=== PATIENT | male | born 1935 | race Caucasian/White ===

== ENCOUNTER 2018-04-11 10:57 | Day surgery (SDC) | payer MEDICARE, BC ==
[~2018-04-11 10:57] MED LIST: ACTO35TA PO; AMBI6.25 PO; CYMB30CA PO; HYDR12.56 PO; NEXI40CA PO; PRED10 PO; PREG75 PO; PROS5TAB2 PO; TAMS0.4C67 PO
[2018-04-11] MEDS ORDERED: IOHEXOL 350 MG/ML 100 ML BTL (for Cath Lab) OTHER ONE (10:58)
[2018-04-11] MEDS ORDERED: ECASA81 PO (11:45)
[2018-04-11] MEDS ORDERED: MELO7.5T27 PO (11:45)
[2018-04-11] MEDS ORDERED: TRAM50TA PO (11:45)
[2018-04-11] MEDS ORDERED: TAMS0.4C4 (11:45)
[2018-04-11] MEDS ORDERED: PAXI10TA8 PO (11:45)
[2018-04-11] MEDS ORDERED: NEXI40CA PO (11:45)
[2018-04-11] MEDS ORDERED: METO1TAB42 PO (11:45)
[2018-04-11] MEDS ORDERED: VITA1000 PO (11:45)
[2018-04-11] MEDS ORDERED: ATOR80TA45 PO (11:45)
[2018-04-11] MEDS ORDERED: OCUVTAB4 PO (11:45)
[2018-04-11] MEDS ORDERED: LORA-650 PO (11:45)
[2018-04-11] MEDS ORDERED: FINA5TAB2 (11:45)
[2018-04-11] MEDS ORDERED: TRAZ50TA12 PO (11:45)
[2018-04-11 11:47] VITALS: BP 147/99; PULSE 95; RESP 18; TEMP 97.7; O2SAT 95
[2018-04-11 11:48] LABS: AUTOMATED NEUTROPHIL # 5.3 TH/MM3 (1.8-7.7); BASOPHIL % 0.5 % (0.0-2.0); EOSINOPHIL # 0.1 TH/MM3 (0-0.4); EOSINOPHIL % 0.9 % (0.0-4.0); HEMATOCRIT 46.4 % (39.0-51.0); HEMOGLOBIN 15.8 GM/DL (13.0-17.0); LYMPHOCYTE # 3.9 TH/MM3 (1.0-4.8); MEAN CELL VOLUME 93.7 FL (80.0-100.0); MEAN CORPUSCULAR HEMOGLOBIN 31.8 PG (27.0-34.0); MEAN PLATELET VOLUME 9.3 FL (7.0-11.0); MONO % 9.9 % (0.0-8.0); NEUT % 50.7 % (16.0-70.0); PLATELET COUNT 288 TH/MM3 (150-450); RED BLOOD COUNT 4.96 MIL/MM3 (4.50-5.90); WHITE BLOOD COUNT 10.4 TH/MM3 (4.0-11.0)
[2018-04-11 11:58] LABS: INTERNATIONAL NORMALIZED RATIO 1.1 RATIO; PROTHROMBIN TIME - PATIENT 10.7 SEC (9.8-11.6)
[2018-04-11 12:18] LABS: BICARBONATE 26.9 MEQ/L (21.0-32.0); CALCIUM 9.3 MG/DL (8.5-10.1); CREATININE 1.09 MG/DL (0.60-1.30)
[2018-04-11] MEDS ORDERED: NS 1000P @30 MLS/HR (KVO) IV SCH (14:00)
[2018-04-11] MEDS ORDERED: HEPARIN-NS/PF FLUSH BAG 2,000 ML IV FLUSH ONE (17:20)
[2018-04-11] MEDS ORDERED: MIDAZOLAM HCL 5 MG/5 ML VIAL ONE (17:20)
[2018-04-11] MEDS ORDERED: HEPARIN SODIUM - IV 10,000 UNITS/10 ML VIAL ONE (17:21)
--- NOTE | 2018-04-11 18:44 | CATHPROC ---
[facility] HIS Report Study Information Study Number Admission Scheduled Start Study Start [id number] Apr 11 2018 10:57AM 04/11/2018 Apr 11 2018 5:14PM [place] [facility] Cardiac Catheterization Admit Source Facility Department Other [facility] Physician and Clinical Staff Initial [place] Train Brake Operator Doyle Davis,JUNIE Train Brake Operator Cora Hanna,JUNIE Recorder Ron Mosley,(R) Recorder Zoraida Abdi BSN Scrub Cristina Dinh RCIS TECHLamine Procedures Performed Procedure Location (Site) Vessel Name Angiogram LV Asc. Aorta (A) Angiogram LV LV Ventricle Coronary Angiograms LCA Left Coronary Coronary Angiograms RCA Right Coronary L Heart Cath Equipment Time Mobile Ui Developer Description Size Mfg Part Number Used/Scraped [id number] 17:20 SCHREIBER CABRAL SWAN MATY CATHETER FR 7 Used *[id number] TRANSDUCER, TRUWAVE [id number] 17:20 SCHREIBER CABRAL * Used W/STOCKCOCK *[id number] 18:19 THUBIT MEDICAL VASCADE, FR5 CLOSURE SYSTEM FR 5 Used *[id number] [id number] *[id number] 534-520T *[id number] [id number] *[id number] 17:20 Teads INDUSTRIES PACK, CCL CUSTOM * Used *[id number] 17:20 Teads PACER PEN, SKIN DUAL W/ RULER * Used *[id number] 17:20 MZL Shine Cleaning WIRE, 3MMJ .035 180CM 180CM Used *[id number] PROBE COVER, STERILE [id number] 17:20 Off & Away * Used ULTRASOUND W/ GEL *[id number] 17:20 NAMIC MANIFOLD, 2 PORT * Used *[id number] 17:20 NAMIC MANIFOLD, 4 PORT * Used *[id number] 17:20 NAMIC TUBING, HIGH PRESSURE 48" 48" Used *[id number] 17:20 NYCOMED OMNIPAQUE, 350 MG, 150ML 150ML [id number] Used 18:08 NYCOMED OMNIPAQUE, 350 MG, 150ML 150ML [id number] Used [id number] 17:20 [place] [employer] BLANKET,WARM AIR CCL * Used *[id number] 17:20 TERUMO MEDICAL SHEATH, FR5 TERUMO (10CM) FR 5 Used *[id number] 17:20 TERUMO MEDICAL SHEATH, FR7 TERUMO (10CM) FR 7 Used *[id number] History: Current Medications Medication Dosage/Unit Route Frequency Last Date/Time Taken ASA LOPRESSOR Statins (any) TRAMADOL XARELTO History: Allergies Allergy Reaction penicillin G ITCHING History: Risk Factors Family History of Hypertension Dyslipidemia Previous IL Previous Heart Failure Premature CAD Yes Yes No No No Prior Valve Prior PCI Prior CABG Surgery No No No Cerebrovascular Peripheral Artery Chronic Lung On Dialysis Diabetes Diabetes Therapy Disease Disease Disease No No Yes No Yes None History: Symptoms/Diagnosis Selection Items Syncope History: Stress Tests Stress or Imaging Studies Performed No History: Other Disease Selection Items Cancer Gerd HTN History: Other Current Smoker Method Quit Packs a Day Years Used Pack Years No Cigarettes 44 Years Ago 2 25 50 Labs Hgb (g/dl) Hct (%) RBC (MIL/MM3) WBC (l/cumm) Platelets (thousands) 11.60-17.00 35.00-51.00 4.00-5.90 4.00-11.00 150.00-450.00 15.8 46.4 4.9 10.4 288 Glucose (mg/dl) BUN (mg/dl) Creatinine (mg/dl) BUN:Creatinine (1:x) 74.00-106.00 7.00-18.00 0.50-1.30 10.00-20.00 105 18 1.0 18 Na (meq/l) K (meq/l) Cl (meq/l) CO2 (mmol/L) Ca (mg/dl) 136.00-145.00 3.50-5.10 98.00-107.00 21.00-32.00 8.50-10.10 140 4.8 103 26.9 9.3 PT (sec) PTT (sec) INR (PTT:PT) 9.80-11.60 24.30-30.10 0.90-1.10 10.7 25.7 1.1 CPK-MB (ng/ML) 0.50-3.60 Not Drawn Medication Medication Total Dose (Bolus/Oral) Medication Total Dosage/Unit 1% XYLOCAINE 20 mL FENTANYL 100 mcg HEPARIN 3000 units VERSED 5 mg Medications (Bolus/Oral) Medication Time Given Dosage/Unit Administered By Reason VERSED 04/11/2018 5:38:25 PM 2 mg Hesher, Cora 2 mg VERSED given in lab by Cora Hanna RN via Peripheral IV. Ordered by Joe Rose. FENTANYL 04/11/2018 5:39:20 PM 50 mcg Hesher, Cora 50 mcg FENTANYL given in lab by Cora Hanna RN via Peripheral IV. Ordered by Joe Rose. 1% XYLOCAINE 04/11/2018 5:40:22 PM 20 mL Joe Rose 20 mL 1% XYLOCAINE given in lab by Joe Rose in Right Groin via Subcutaneous. VERSED 04/11/2018 5:46:39 PM 1 mg Hesher, Cora 1 mg VERSED given in lab by Cora Hanna RN via Peripheral IV. Ordered by Joe Rose. HEPARIN 04/11/2018 5:51:05 PM 3000 units Lilianaher, Cora 3000 units HEPARIN given in lab by Cora Hanna RN in Left Antecubital via Peripheral IV. Ordered by Joe Rose. VERSED 04/11/2018 5:56:50 PM 1 mg Hesher, Cora 1 mg VERSED given in lab by Cora Hanna RN via Peripheral IV. Ordered by Joe Rose. FENTANYL 04/11/2018 5:57:16 PM 25 mcg Hesher, Cora 25 mcg FENTANYL given in lab by Cora Hanna RN via Peripheral IV. Ordered by Joe Rose. VERSED 04/11/2018 6:14:56 PM 1 mg Hesher, Cora 1 mg VERSED given in lab by Cora Hanna RN via Peripheral IV. Ordered by Joe Rose. FENTANYL 04/11/2018 6:15:22 PM 25 mcg Hesher, Cora 25 mcg FENTANYL given in lab by Cora Hanna RN via Peripheral IV. Ordered by Joe Rose. Medication (Drip) Medication Time Given Dosage/Unit Concentration/Unit Diluent (ml) Solutio n IV Solutions 04/11/2018 5:20:35 PM 0 mL (IV) 500 NaCl .9 IV Solutions given in lab by Doyle Davis RN in Left Antecubital via Peripheral IV. Pump/Drip Flow = 20 ml/hr using NaCl .9. Initial Case Assessment Cardiovascular HR Rhythm NIBP Chest Pain 92 Sinus 160/91 0 Edema Present Skin color Skin None Normal Warm Dry Circulatory - Right Pulses Posterior Tibial Femoral d 2 Scale (0,1,2,3,4,d) Circulatory - Left Pulses Posterior Tibial Femoral 2 Scale (0,1,2,3,4,d) Neurological State Oriented to time-place- Alert Moves all extremities person Respiration - General Respiration Rate SpO2 (%) O2 (lpm) (B/min) 21 98 0 Final Case Assessment Cardiovascular HR Rhythm NIBP Chest Pain 87 Sinus 106/60 0 Edema Present Skin color Skin None Normal Warm Dry Circulatory - Right Pulses Posterior Tibial Femoral d 2 Scale (0,1,2,3,4,d) Circulatory - Left Pulses Posterior Tibial Femoral 2 Scale (0,1,2,3,4,d) Neurological State Oriented to time-place- Alert Moves all extremities person Respiration - General Respiration Rate SpO2 (%) O2 (lpm) (B/min) 21 98 0 Chronological Log Time Study Chronological Log 17:15:19 Patient arrived via Bed. 17:15:20 Patient Name, D.O.B, / Armband Verified By R.N. 17:15:21 Consent signed by the physician and the patient and verified by the [facility] staff. 17:15:21 Pre-op and post- op instructions given; patient acknowledges understanding of instructions . 17:15:22 Verbal Stimulation=2 Physical Stimulation=2 Airway=2 Respiration=2 TOTAL=8. (0=absent, 1=l imited, 2=present) 17:15:23 Presedation assessment performed by [facility] RN. 17:15:26 Skin Breakdown- none per patient. 17:15:26 Patient has been NPO for More than 6Hrs. Vitals capture started with the following parameters, Patient=Adult, Interval=5 min, Initial P khhregk=939 mmHg, 17:19:47 Deflation Rate=5 mmHg, Cuff placed on Left Arm 17:20:31 Patient Warmer Placed on the Table. 17:20:33 Mariella Prominences Protected 17:20:34 A # 20 IV was noted in the Antecubital (left). Grade = 0 IV Solutions given in lab by Doyle Davis, JUNIE in Left Antecubital via Peripheral IV. Pump/Dr ip Flow = 20 ml/hr using 17:20:35 NaCl .9. 17:20:36 History and physical on the chart or being dictated. Assessment: Initial Case, HR=92 BPM, Rhythm=Sinus, GTYO=618/91 mmhg, Chest Pain=0, Edema=None, Color=Normal, Skin = Warm, Dry Right Pulses: Post Tib=d, Femoral=2 17:20:39 Left Pulses: Femoral=2 Neurological: State=Alert, Ox3, GRIFFIN Respiration: Resp=21 B/min, SpO2=98 %, O2=0 lpm 17:20:56 HR=91 bpm, OVYC=304/91 mmhg, SpO2=98.0 %, Resp=18 B/min, Pain=0, Angeal=10, Maynard=2 17:25:26 HR=89 bpm, GCPF=513/106 mmhg, SpO2=96.0 %, Resp=23 B/min, Pain=0, Angela=10, Maynard=2 17:30:27 HR=92 bpm, VFOF=835/85 mmhg, SpO2=97.0 %, Resp=28 B/min, Pain=0, Angela=10, Maynard=2 17:30:42 Bilateral groins prepped with 2% chlorhexidine, and draped after a 3 minute waiting time. 17:30:54 MD paged 17:33:56 MD arrived. 17:34:16 Pressure channel 1 zeroed. 17:35:24 HR=91 bpm, JEWN=238/83 mmhg, SpO2=97.0 %, Resp=25 B/min, Pain=0, Angela=10, Maynard=2 17:36:43 Pressure channel 2 zero failed. 17:36:52 Pressure channel 2 zeroed. 17:38:25 2 mg VERSED given in lab by Cora Hanna, JUNIE via Peripheral IV. Ordered by Alison Rose 17:39:20 50 mcg FENTANYL given in lab by Cora Hanna, JUNIE via Peripheral IV. Ordered by Chidi Rose. Time Out. Correct patient, correct procedure, correct physician, power injector loaded with con trast with surgical team 17:40:04 present. Time Out Concurred by MD and individual staff in procedure. 17:40:16 Case Start 17:40:22 20 mL 1% XYLOCAINE given in lab by Joe Rose in Right Groin via Subcutaneous. 17:40:23 HR=86 bpm, TTJH=307/86 mmhg, SpO2=89.0 %, Resp=16 B/min, Pain=0, Angela=10, Maynard=2 17:44:37 Access site was Right Femoral Artery. 17:44:49 A SHEATH, FR5 TERUMO (10CM) FR 5 was advanced into the Fem Art (right) using the Percutaneo us technique. 17:45:00 Access site was Right Femoral Vein. 17:45:06 A SHEATH, FR7 TERUMO (10CM) FR 7 was advanced into the Fem Vein (right) using the Percutane ous technique. 17:45:22 HR=85 bpm, JGXE=957/76 mmhg, SpO2=96.0 %, Resp=13 B/min, Pain=0, Angela=10, Maynard=2 17:46:22 Reference ECG taken 17:46:39 1 mg VERSED given in lab by Cora Hanna, JUNIE via Peripheral IV. Ordered by Alison Rose 17:48:18 A SWAN MATY CATHETER FR 7 was inserted via Fem Vein (right) 17:51:04 HR=53 bpm, YQEL=927/69 mmhg, SpO2=91.0 %, Resp=22 B/min, Pain=0, Angela=10, Maynard=2 3000 units HEPARIN given in lab by Cora Hanna, JUNIE in Left Antecubital via Peripheral IV. Or dered by Milton, 17:51:05 Joe. A PIGTAIL ANG. INFINITI CATHETER FR 5 was advanced over a wire. OMNIPAQUE, 350 MG, 150ML 150ML was used 17:52:09 for injections. 17:53:56 Pressure channel 2 zeroed. 17:54:00 Pressure channel 1 zeroed. 17:54:33 Saturation: Site=Ao (Aorta) , O2=93.2 %, Hgb=15.8 gm/dl, Condition=Condition 1. Used in hardeep culation. 17:55:36 Saturation: Site=PA (Pulmonary Artery) , O2=78.8 %, Hgb=15.8 gm/dl, Condition=Condition 1. Used in calculation. 17:55:51 HR=89 bpm, ARSI=477/86 mmhg, SpO2=96.0 %, Resp=15 B/min, Pain=0, Angela=10, Maynard=2 17:56:50 1 mg VERSED given in lab by Cora Hanna, JUNIE via Peripheral IV. Ordered by Alison Rose 17:57:16 25 mcg FENTANYL given in lab by Cora Hanna, JUNIE via Peripheral IV. Ordered by Chidi Rose. Recorded Pressure: LV, PCW, HR=90, Condition=Condition 1 17:57:44 (Left Ventricle) LV 152/11/15, (Pulmonary Capillary Wedge) PCW 1817/14 Recorded Pressure: LV, MPA, HR=74, Condition=Condition 1 17:58:16 (Left Ventricle) LV 155/11/12, (Main Pulmonary Artery) MPA 42//30 Recorded Pressure: LV, RV, HR=92, Condition=Condition 1 17:58:37 (Left Ventricle) LV 144/10/16, (Right Ventricle) RV 38/7/12 18:00:00 Saturation: Site=RV (Right Ventricle) , O2=79.5 %, Hgb=15.8 gm/dl, Condition=Condition 1. U sed in calculation. 18:00:22 HR=89 bpm, VMNO=116/80 mmhg, SpO2=92.0 %, Resp=20 B/min, Pain=0, Angela=10, Maynard=2 18:00:56 Saturation: Site=RA (Right Atrium) , O2=82.1 %, Hgb=15.8 gm/dl, Condition=Condition 1. Used in calculation. Recorded Pressure: LV, RA, HR=85, Condition=Condition 1 18:03:11 (Left Ventricle) LV 146/8/10, (Right Atrium) RA 10/8/6 18:03:34 [place] Maty Catheter Removed 18:04:50 The LV was injected at 10 cc/sec for a total of 30. OMNIPAQUE, 350 MG, 150ML 150ML used. 18:05:25 HR=86 bpm, ETRU=795/73 mmhg, SpO2=93.0 %, Resp=19 B/min, Pain=0, Angela=10, Maynard=2 Recorded Pressure: LV, Ao, HR=85, Condition=Condition 1 18:05:56 (Left Ventricle) LV 149/6/13, (Aorta) Ao 111/61/83 18:07:19 The Asc. Aorta (A) was injected at 20 cc/sec for a total of 40. OMNIPAQUE, 350 MG, 150ML 15 0ML used. 18:07:57 Catheter was removed A JL 4.0 INFINITI CATHETER FR 5 was advanced over a wire. OMNIPAQUE, 350 MG, 150ML 150ML was us ed for 18:09:09 injections. 18:10:24 HR=84 bpm, MKIS=310/69 mmhg, SpO2=93.0 %, Resp=16 B/min 18:10:32 The LCA was injected and visualized at various angles. OMNIPAQUE, 350 MG, 150ML 150ML used . After removing the current catheter a AR MOD INFINITI CATHETER FR 5 was advanced over a WIRE, 3 MMJ .035 180CM 18:13:04 180CM. 18:14:06 The RCA was injected and visualized at various angles. OMNIPAQUE, 350 MG, 150ML 150ML used . 18:14:56 1 mg VERSED given in lab by Cora Hanna, JUNIE via Peripheral IV. Ordered by Alison Rose 18:15:22 25 mcg FENTANYL given in lab by Cora Hanna RN via Peripheral IV. Ordered by Chidi Rose. 18:15:27 HR=86 bpm, VHMN=151/72 mmhg, SpO2=93.0 %, Resp=24 B/min 18:15:41 Catheter was removed 18:15:51 Case End 18:16:56 An injection in the Fem Art (right) was made through the SHEATH, FR5 TERUMO (10CM) FR 5. 18:19:06 Activated Clotting Time Drawn 18:20:22 HR=79 bpm, AHYY=256/90 mmhg, SpO2=93.0 %, Resp=28 B/min, Pain=0, Angela=9, Maynard=2 18:22:32 VASCADE, FR5 CLOSURE SYSTEM FR 5 placement in the Fem Art (right) 18:23:43 Venous Sheath removed; pressure applied to access site. 18:24:37 No case complications noted. 18:24:39 Cine recording checked. 18:24:41 Bedside Report will be given. 18:24:44 Implantable Device card placed in patient's chart. 18:25:23 HR=83 bpm, PWFS=222/76 mmhg, SpO2=96.0 %, Resp=21 B/min, Pain=0, Angela=9, Maynard=2 18:30:28 HR=87 bpm, SCTH=098/60 mmhg, SpO2=96.0 %, Resp=19 B/min, Pain=0, Angela=9, Maynard=2 18:33:20 Sterile dressing applied to sites 18:34:00 A Left Heart Cath was performed. Assessment: Final Case, HR=87 BPM, Rhythm=Sinus, OIDP=201/60 mmhg, Chest Pain=0, Edema=None, Color=Normal, Skin = Warm, Dry Right Pulses: Post Tib=d, Femoral=2 18:34:58 Left Pulses: Femoral=2 Neurological: State=Alert, Ox3, GRIFFIN Respiration: Resp=21 B/min, SpO2=98 %, O2=0 lpm 18:35:30 Vitals capture stopped. 18:36:05 [facility] - Contrast Media Used In Study Contrast Total Opened (mL) Total Used (mL) Total Wasted (mL) Omnipaque 130 130 0 End Study - Maximum Contrast Load Max Contrast Load (mL) 555.5 End Study - Radiation Exposure Fluoro Time (minutes) 5.0 End Study - Sheaths Sheaths Pulled By Sheath Hold Time (min) Cristina Dinh 10 End Study - Patient Disposition Complications Transferred To No [facility] Holding
--- NOTE | 2018-04-11 19:06 | MR ---
cc: Joe Rose MD, Otakar MD DATE: 04/11/2018 Left and right cardiac catheterization. INDICATION: Aortic stenosis, stable angina Class II, congestive heart failure Class II. PROCEDURE PERFORMED: 1. Retrograde left and right heart catheterization with left ventriculography and selective coronary angiography 2. Thoracic aortic angiography including aortic root, ascending thoracic aorta, aortic arch and descending thoracic aorta. 3, Moderate sedation. ACCESS SITE: Right femoral artery and right femoral vein. EQUIPMENT USED: 5-Greek pigtail catheter, 5-Greek JL4 and AR modified coronary catheters, Valmeyer-Alecia catheter. MEDICATIONS: Versed IV, fentanyl IV, heparin IV CONTRAST: Omnipaque 130 mL COMPLICATIONS: None. ESTIMATED BLOOD LOSS: Less than 10 mL METHOD OF HEMOSTASIS: VASCADE closure. A. HEMODYNAMICS: Mean pulmonary capillary wedge pressure 14 mmHg Pulmonary artery 40/21/30 Right ventricle 40/7 Mean right atrial pressure 6 mmHg Left ventricle 150/9 Aorta 112/59/82. Aortic valve peak gradient 38 mmHg Valve area 1.4 cm2. B. LEFT VENTRICULOGRAPHY AND AORTIC ANGIOGRAPHY: Ejection fraction 50%. Wall motion normal. No mitral regurgitation. Aortic angiography showed no evidence of aortic insufficiency and mild ascending aortic dilatation. C. CORONARY ANGIOGRAPHY: Left main coronary patent. Left anterior descending patent. D1 patent. Ramus intermedius patent. Left circumflex artery is patent. OM1 patent. Right coronary artery is a dominant vessel with 30% stenosis in the mid portion. PDA patent. PLV patent. DIAGNOSES: 1. Moderate aortic stenosis. 2. Borderline normal left ventricular systolic function. 3. Mild nonobstructive coronary artery disease. 4. Very mild pulmonary hypertension. DISPOSITION: Mr. Ugarte has evidence of moderate aortic stenosis and no significant coronary artery disease. I recommend to continue conservative management. I will see him back for followup in our office after discharge. MD MARY KATE Fletcher/ , 06:41 PM , 07:05 PM GERMAN
[2018-04-11 19:45] VITALS: BP 150/85; PULSE 85; RESP 20; TEMP 98.2; O2SAT 97
[2018-04-11 20:00] VITALS: PULSE 89
[2018-04-11 21:00] VITALS: PULSE 88
[2018-04-11 22:00] VITALS: PULSE 80
--- NOTE | 2018-04-11 22:05 | EKG ---
Date Performed: 04/11/2018 Time Performed: 11:44:04 PTAGE: 82 years EKG: Sinus rhythm with PVC(s) with borderline 1st degree A-V block. Possible inferior infarct - age undetermined Possi ble left ventricular hypertrophy Lateral ST-T changes are probably due to ventricular hypertrophy Abn ormal ECG PREVIOUS TRACING : 04/14/2009 10.34 Since the previous tracing, no significant change noted DOCTOR: Jeffrey Turcios Interpretating Date/Time 04/11/2018 22:04:15
[2018-04-11 23:00] VITALS: PULSE 78
[2018-04-12] VITALS (9 sets, daily range): BP systolic 130–147; BP diastolic 55–85; PULSE 74–88; RESP 18; TEMP 97.6–97.9; O2SAT 93–97
--- NOTE | 2018-04-12 19:34 | PD.CARD.PN ---
Subjective Subjective Remarks No CP or SOB Objective Vital Signs / I&O Vital Signs Date Time Temp Pulse Resp B/P (MAP) Pulse Ox O2 Delivery O2 Flow Rate FiO2 04/12/18 08:30 85 04/12/18 07:30 93 Room Air 04/12/18 07:30 97.7 88 18 130/85 (100) 93 04/12/18 06:00 84 04/12/18 05:00 82 04/12/18 04:00 97.6 82 18 147/82 (103) 97 04/12/18 04:00 74 04/12/18 04:00 Room Air 04/12/18 03:00 76 04/12/18 02:00 78 04/12/18 01:00 80 04/12/18 00:00 Nasal Cannula 2.00 04/12/18 00:00 97.9 78 18 139/55 (83) 95 04/12/18 00:00 81 04/11/18 23:00 78 04/11/18 22:00 80 04/11/18 21:00 88 04/11/18 20:00 89 04/11/18 19:45 98.2 85 20 150/85 (106) 97 04/11/18 19:45 Nasal Cannula 2.00 I/O 04/11/18 04/11/18 04/11/18 04/12/18 04/12/18 04/12/18 07:00 15:00 23:00 07:00 15:00 23:00 Intake Total 240 ml 300 ml Output Total 400 ml 300 ml Balance -160 ml 0 ml Intake Oral 240 ml 300 ml Output Urine Total 400 ml 300 ml # Bowel Movements 1 Physical Exam GENERAL: IN NAD SKIN: Warm and dry. HEAD: Normocephalic. EYES: No scleral icterus. No injection or drainage. NECK: Supple, trachea midline. No JVD or lymphadenopathy. CARDIOVASCULAR: Regular rate and rhythm with MARY, no gallops or rubs. RESPIRATORY: Breath sounds equal bilaterally. No accessory muscle use. GASTROINTESTINAL: Abdomen soft, non-tender, nondistended. MUSCULOSKELETAL: No cyanosis, or edema. Groin stable. Assessment and Plan Problem List: (1) Aortic stenosis ICD Codes: I35.0 - Nonrheumatic aortic (valve) stenosis Assessment and Plan Cath with moderate and very mild CAD. Groin stable. DC home. F/u w me as outpt. Joe Rose MD April 12, 2018 19:34
== END 2018-04-12 10:26 | disposition home or self-care (01) ==
LOC: HDOC 10:57 → HDIC 10:59 → HCIS 19:46 → HDOC 04-12 10:26
PROVIDERS: ATTEND Internal Medicine Interventional Cardiology
DX: I35.0 Nonrheumatic aortic (valve) stenosis (principal); I25.10 Atherosclerotic heart disease of native coronary artery without angina pectoris; I27.20 Pulmonary hypertension, unspecified; E78.5 Hyperlipidemia, unspecified; I82.409 Acute embolism and thrombosis of unspecified deep veins of unspecified lower extremity; Z79.01 Long term (current) use of anticoagulants
CPT/HCPCS: 80048; 82810; 85002; 85025; 85610; 85730; 93005; 93460; 93567; 99152; 99153; C1760; C1769; C1893; G0269; J1644; J2250; J3010; Q9967